=== PATIENT | male | born 1980 | race Two or more races ===

== ENCOUNTER 2023-05-18 06:00 | Day surgery (SDC) | payer OTHER ==
[2023-05-18] MEDS ORDERED: PEPCID AC20 MG PO (08:13)
== END 2023-05-18 09:55 | disposition home or self-care (01) ==
LOC: AMB-ENDOS 06:00
PROVIDERS: ATTEND Surgery
DX: K29.70 Gastritis, unspecified, without bleeding (principal); B96.81 Helicobacter pylori [H. pylori] as the cause of diseases classified elsewhere; E66.01 Morbid (severe) obesity due to excess calories; R10.13 Epigastric pain; Z20.822 Contact with and (suspected) exposure to COVID-19